=== PATIENT | male | born 1975 | race African-American/Black ===

== ENCOUNTER 2020-10-16 04:50 | Day surgery (SDC) | payer OTHER ==
[2020-10-15 08:51] VITALS: BMI 25.0
[2020-10-16] MEDS ORDERED: LIDOCAINE HCL/PF 1% SDV 5ML VIAL ONE (07:32)
[2020-10-16] MEDS ORDERED: LIDOCAINE HCL/PF 2% SDV 5ML VIAL ONE (07:32)
[2020-10-16] MEDS ORDERED: BUPIVACAINE HCL/PF 0.75% 10 ML VIAL NR ONE (12:28)
[2020-10-16] MEDS ORDERED: IOHEXOL 180 MG/1 ML ML IJ ONE (12:28)
[2020-10-16] MEDS ORDERED: LIDOCAINE HCL 1% PRESERVATIVE FREE - 30ML VIAL IJ ONE (12:28)
[2020-10-16 13:55] VITALS: BP 147/94; PULSE 81; TEMP 98.4
== END 2020-10-16 13:05 | disposition home or self-care (01) ==
LOC: JASU-SURG 04:50
PROVIDERS: ATTEND Pain Medicine Pain Medicine
PROC: BR16YZZ Fluoroscopy of Lumbar Facet Joint(s) using Other Contrast (ICD-10-PCS; 2020-10-16)
PROC: 3E0T3BZ Introduction of Anesthetic Agent into Peripheral Nerves and Plexi, Percutaneous Approach (ICD-10-PCS; principal; 2020-10-16 12:00)
DX: M47.816 Spondylosis without myelopathy or radiculopathy, lumbar region (principal)

== ENCOUNTER 2020-11-27 04:12 | Day surgery (SDC) | payer OTHER ==
[2020-11-25 13:37] VITALS: BMI 25.2
[2020-11-27] MEDS ORDERED: BUPIVACAINE HCL/PF 0.25% (2.5MG/ML) 10 ML VIAL ONE (07:14)
[2020-11-27] MEDS ORDERED: LIDOCAINE HCL/PF 1% SDV 5ML VIAL ONE (07:14)
[2020-11-27] MEDS ORDERED: DEXAMETHASONE SOD PHOSPHATE/PF 10 MG/ML SDV ONE (07:14)
[2020-11-27] MEDS ORDERED: BUPIVACAINE HCL 50 ML ONE (07:15)
[2020-11-27] MEDS ORDERED: BUPIVACAINE HCL/PF 0.75% 10 ML VIAL ONE (07:15)
[2020-11-27] MEDS ORDERED: TRIAMCINOLONE ACET 40MG/1ML VIAL ONE (07:23)
[2020-11-27] MEDS ORDERED: SODIUM CHLORIDE 0.9% P/F 10 ML VIAL IJ ONE (07:28)
[2020-11-27] MEDS ORDERED: LIDOCAINE 1% P/F 10 MG/ML VIAL INF ONE (08:15)
[2020-11-27] MEDS ORDERED: BUPIVACAINE HCL/PF 2.5 MG/ML - 30 ML VIAL IJ ONE (08:15)
[2020-11-27] MEDS ORDERED: IOHEXOL 180 MG/1 ML ML IJ ONE (08:15)
[2020-11-27 08:42] VITALS: BP 146/81; PULSE 93; TEMP 97.9
== END 2020-11-27 08:40 | disposition home or self-care (01) ==
LOC: JASU-SURG 04:12
PROVIDERS: ATTEND Pain Medicine Pain Medicine
PROC: 3E0U33Z Introduction of Anti-inflammatory into Joints, Percutaneous Approach (ICD-10-PCS; 2020-11-27)
PROC: 3E0U3BZ Introduction of Anesthetic Agent into Joints, Percutaneous Approach (ICD-10-PCS; principal; 2020-11-27 08:00)
DX: M16.11 Unilateral primary osteoarthritis, right hip (principal); M25.551 Pain in right hip
CPT/HCPCS: 76000-TC-FY

== ENCOUNTER 2021-01-29 04:21 | Day surgery (SDC) | payer OTHER ==
[2021-01-27 16:04] VITALS: BMI 25.7
[2021-01-29 07:53] VITALS: BP 139/89; PULSE 80; TEMP 98.7
[2021-01-29] MEDS ORDERED: amLODIPine BESYLATE 5 MG TABLET (FP) PO SCH ×3 (10:00→10:30)
== END 2021-01-29 10:10 | disposition home or self-care (01) ==
LOC: JASU-SURG 04:21
PROVIDERS: ATTEND Pain Medicine Pain Medicine
DX: Z53.8 Procedure and treatment not carried out for other reasons (principal)

== ENCOUNTER 2021-03-12 04:20 | Day surgery (SDC) | payer OTHER ==
[2021-03-09 11:01] VITALS: BMI 24.0
[2021-03-12] MEDS ORDERED: DEXAMETHASONE SOD PHOSPHATE/PF 10 MG/ML SDV ONE (17:50)
[2021-03-12] MEDS ORDERED: LIDOCAINE HCL 1%, 10 MG/ML (50 mL VIAL) INF ONE (17:59)
[2021-03-12] MEDS ORDERED: DEXAMETHASONE SOD PHOSPHATE 10 MG/1 ML VIAL IM ONE ×2 (18:00→18:01)
[2021-03-12] MEDS ORDERED: IOHEXOL 180 MG/1 ML ML IJ ONE (18:01)
[2021-03-12 18:30] VITALS: BP 120/65; PULSE 85; TEMP 98.1
== END 2021-03-12 18:25 | disposition home or self-care (01) ==
LOC: JASU-SURG 04:20
PROVIDERS: ATTEND Pain Medicine Pain Medicine
PROC: 3E0R33Z Introduction of Anti-inflammatory into Spinal Canal, Percutaneous Approach (ICD-10-PCS; 2021-03-12)
PROC: B01BYZZ Fluoroscopy of Spinal Cord using Other Contrast (ICD-10-PCS; 2021-03-12)
PROC: 3E0R3BZ Introduction of Anesthetic Agent into Spinal Canal, Percutaneous Approach (ICD-10-PCS; principal; 2021-03-12 17:30)
DX: M54.16 Radiculopathy, lumbar region (principal); M48.061 Spinal stenosis, lumbar region without neurogenic claudication
CPT/HCPCS: 76000-TC-FY; J1100

== ENCOUNTER → 2021-04-16 | Day surgery (SDC) | payer OTHER ==
[2021-04-15 18:50] VITALS: BMI 24.1
[~2021-04-16] MED LIST: BUPIVACAINE HCL/PF 0.5% (5MG/ML) 10 ML VIAL ONE; LIDOCAINE HCL/PF 1% SDV 5ML VIAL ONE; TRIAMCINOLONE ACET 40MG/1ML VIAL ONE
== END | disposition home or self-care (01) ==
LOC: JASU-SURG 04:32
PROVIDERS: ATTEND Pain Medicine Pain Medicine
DX: Z53.8 Procedure and treatment not carried out for other reasons (principal)